=== PATIENT | female | born 1955 | race Caucasian/White ===

== ENCOUNTER 2018-07-08 08:42 | Day surgery (SDC) | payer OTHER, SELFPAY ==
[2018-07-08] VITALS (7 sets, daily range): BP systolic 129–151; BP diastolic 60–86; PULSE 75–92; RESP 16–18; TEMP 36.1–36.6; O2SAT 95–100; BMI 34.7
--- NOTE | 2018-07-08 09:20 | DCINST_ITS ---
Discharge Diet: No Restrictions Discharge Activity: Return to Normal Activity, May not drive while taking narcotic pain medications. May resume sexual activity in: No Restrictions Call your doctor if you observe: Fever of 101 or Higher, Inability to urinate, Shortness of breath, Chest pain, Calf discomfort, Uncontrolled pain Allergies/Adverse Reactions: Allergies plastic tape Adverse Reaction (Uncoded 07/01/18 10:24) Rash Medications to take at Discharge Albuterol IH (ProAir) [Proair Hfa (SP)Vent Pts] 2 puff INHALATION Q4H PRN PRN 07/01/18 Atorvastatin Calcium [Lipitor] 20 mg PO QHS 07/01/18 Cholecalciferol (Vitamin D3) [Vitamin D3] 2,000 unit PO DAILY 07/01/18 Cranberry Fruit Extract [Cranberry] 500 mg PO DAILY 07/01/18 Diltiazem CD [Cardizem CD] 240 mg PO DAILY 07/01/18 Glimepiride [Amaryl] 4 mg PO DAILY 07/01/18 Insulin Glargine [Lantus (BKC)] 20 units SC DAILY 07/01/18 L.acidoph,Paracasei, B.lactis [Probiotic] 1 each PO QHS 07/01/18 Metformin HCl [Glucophage] 1,000 mg PO BIDCM 07/01/18 Mirabegron [Myrbetriq] 25 mg PO DAILY 07/01/18 Triamterene/Hctz 37.5/25Mg [Triamterene-Hctz 37.5-25 mg Tb] 1 tab PO DAILY 07/01/18 Primary Care Physician: Mina Hart [Primary Care Provider] - Test Results: Test results from this visit will be discussed in further detail at your follow- up appointment, if applicable. Please Follow Up With: Kaylynn Torres MD When: 2-3 weeks with JONAH Proposed Discharge Date: 07/08/18
--- NOTE | 2018-07-08 09:20 | PCM.OPRPT ---
Problem List (1) Renal calculus Status: Acute Report of Operation Date of Procedure: 07/08/18 Pre-Operative Diagnosis: right renal calculus Post-Operative Diagnosis: same Surgery/Procedure Performed:: right renal extracorporeal shockwave lithotripsy Description of Surgical Findings:: stone identified and appears fragmented at conclusion of shocks. Type of Anesthesia:: General Description of Procedure: The patient is a 62-year-old woman with a long-standing history of stones, having right-sided discomfort. On evaluation she was identified as having a right renal calculus. After discussing all risk benefits and alternatives, informed consent was obtained for extracorporal shockwave lithotripsy. Patient was taken to the operating room and placed on the operating room table. Anesthesia monitored the head, neck, airway, IV access and vital signs throughout the case. Once anesthesia was superbly administered the patient was aligned with the lithotripter. The stone was easily identified and 3000 shocks were applied. The patient tolerated the procedure well without complication. She was awakened and taken to the recovery room in good condition. - Complications none - Admit VTE Documentation VTE Present on Admission: Yes VTE Mechan Device Prophylaxis: SCD's VTE Pharm Prophylaxis ordered?: No Reason prophylaxis not ordered:: Treatment Not Indicated
[2018-07-08] MEDS: Cefazolin 2 GM in 0.9% Normal Saline 100 ML IV (10:12)
[2018-07-08 10:56] LABS: Bedside Glucose 342 mg/dL (70-110)
[2018-07-08 11:31] LABS: Bedside Glucose 305 mg/dL (70-110)
[2018-07-08] MEDS: Insulin Lispro 100 UNIT/ML INSULN.PEN 8 UNIT SC (11:48)
[2018-07-08 12:16] LABS: Bedside Glucose 319 mg/dL (70-110)
[2018-07-08] MEDS: oxyCODONE 5 MG Tablet 10 MG PO (12:50)
[2018-07-08] MEDS: Ketorolac 30 MG/ML Syringe IV (12:50)
== END 2018-07-08 13:26 | disposition home or self-care (01) ==
LOC: SDC 08:48 → AC 09:48
PROVIDERS: Family Provider Family Medicine; PCP Family Medicine; Referring Provider Urology; Visit Provider Urology
PROC: (CPT 50590; principal; 2018-07-08 10:10)
DX: N20.0 Calculus of kidney (principal); R31.0 Gross hematuria; E11.9 Type 2 diabetes mellitus without complications; I10 Essential (primary) hypertension; E78.00 Pure hypercholesterolemia, unspecified; J45.909 Unspecified asthma, uncomplicated; Z78.0 Asymptomatic menopausal state; Z79.4 Long term (current) use of insulin; Z79.899 Other long term (current) drug therapy; Z87.442 Personal history of urinary calculi
CPT/HCPCS: 00873; 50590; 82962; J7120; J2405

== ENCOUNTER → 2018-07-28 09:08 | Outpatient (CLI) | payer OTHER, SELFPAY ==
[2018-07-08 09:53] VITALS: BMI 34.7
--- NOTE | 2018-07-28 09:13 | RAD_ITS ---
STUDY: X-RAY - ABDOMEN/PELVIS REASON FOR EXAM: Female, 63 years old. Right-sided lithotripsy 3 weeks ago TECHNIQUE: Two AP supine views of the abdomen and pelvis. COMPARISON: None. FINDINGS: Normal visualized lung bases. Cholecystectomy clips. There is an unremarkable bowel gas pattern. There is no demonstrated free abdominal air. The visualized liver, spleen and kidneys are grossly normal in size and morphology. Normal soft tissue structures. Normal visualized osseous structures. RAD/Abdomen Single View IMPRESSION: No urinary tract calculi are visible. Electronically Signed: Baron Guzman MD at 21:19 EDT Tel , Service support ,
== END ==
PROVIDERS: Family Provider Family Medicine; PCP Family Medicine; Referring Provider Urology; Visit Provider Urology
DX: N20.0 Calculus of kidney (principal)
CPT/HCPCS: 74018